=== PATIENT | female | born 1970 | race Two or more races ===

== ENCOUNTER 2024-10-24 21:36 | Emergency (ER) | payer MEDICAID, OTHER ==
[~2024-10-24] VITALS: Ht 152.4 cm; Wt 68.5 kg
--- NOTE | 2024-10-24 22:05 | ED.PDOC ---
HPI Comments 54-year-old female came to ER for chest pains. Patient has a history of dyslipidemia. States for the past week, episodes of aching, substernal chest pains, radiating to her upper back, and right and left shoulders. Complaining also of shortness a breath, epigastric abdominal pain, nausea, numbness of upper extremities, and episodes of dizziness. Patient was seen earlier at urgent care, and was advised to proceed with the nearest ER for further evaluation and management. REVIEW OF SYSTEMS: General: No fever, no chills, or fatigue HEENT: No sore throat, no earache, no congestion, no neck pain. Cardiac: (+) chest pain. No palpitations. Lungs: (+) shortness of breath, no cough. GI: No nausea, no vomiting, no diarrhea, no constipation, (+) abdominal pain : No dysuria, frequency, or urgency. No hematuria. Musculoskeletal: No joint pain , no joint swelling, no extremity edema. Skin: No rash, no itching. Neuro: No headache, no dizziness, no weakness, (+) numbness of upper extremities EXAM: General: Awake, alert and oriented. No acute distress. Skin: Skin in warm, dry and intact. Appropriate color for ethnicity. HEENT: The head is normocephalic and atraumatic. Conjunctivae are clear without exudates or hemorrhage. Sclera is non-icteric. EOM are intact. No signs of nystagmus. Eyelids are normal in appearance without swelling or lesions. Oral mucosa is pink and moist Neck: The neck is supple with normal range of motion. No JVD. Cardiac: Heart rate and rhythm are normal. No murmurs, gallops, or rubs are auscultated. Respiratory: No signs of respiratory distress. Lung sounds are clear in all lobes bilaterally without rales, rhonchi, or wheezes. Abdominal: Abdomen is soft, non-tender without distention. Bowel sounds are present and normoactive in all four quadrants. Extremities: Upper and lower extremities are atraumatic in appearance without deformity or edema. Neurological: The patient is awake, alert and oriented to person, place, and time with normal speech. Speech is clear. There is no facial asymmetry. Psychiatric: Appropriate mood and affect. 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 Was a procedure done?: No CP Differential Dx Differential Diagnosis: Angina, Anxiety / Panic Attack Differential Diagnosis: Angina, Chest Wall Pain, Costochondritis, Esophageal reflux/spasm, Gastritis, Myocardial Infarction, Other Comment Intracranial mass, spinal stenosis, other X-Ray, Labs, Meds, VS Vital Signs Date Time Temp Pulse Resp B/P (MAP) Pulse Ox O2 Delivery O2 Flow Rate FiO2 10/25/24 05:55 97.9 63 18 132/84 (100) 94 97.9 10/25/24 04:18 98 Room Air* 0 21 10/25/24 02:09 98.0 54 14 129/82 (98) 96 98.0 10/24/24 23:52 98.2 68 14 138/77 (97) 94 98.2 10/24/24 22:54 64 10/24/24 22:05 77 10/24/24 21:40 98.6 69 20 150/80 96 98.6 Lab Test 10/24/24 23:00 10/24/24 22:00 10/24/24 21:56 Range/Units Troponin I High Sensitivity < 3 L < 3 L </=34 ng/L Urine Color Light-yellow Yellow Urine Clarity Clear Clear Urine pH 5.5 5.0-9.0 Urine Specific [place] 1.019 1.001-1.035 Urine Protein Negative Negative Urine Ketones Negative Negative Urine Blood 1+ H Negative /uL Urine Nitrite Negative Negative Urine Bilirubin Negative Negative Urine Urobilinogen Normal Negative mg/dL Urine Leukocyte Esterase Negative Negative /uL Urine RBC 3 0 - 4 /hpf Urine Microscopic WBC 1 0-5 /HPF Urine Squamous Epithelial Cells Few <5 /hpf Urine Bacteria None seen None Seen /hpf Urine Mucus Few None Seen Urine Glucose Normal Normal mg/dL White Blood Count 7.3 4.4-10.8 10^3/uL Red Blood Count 4.52 4.0-5.20 10^6/uL Hemoglobin 14.3 12.2-16.2 g/dL Hematocrit 41.1 36.0-46.0 % Mean Corpuscular Volume 90.9 80.0-100.0 fL Mean Corpuscular Hemoglobin 31.5 28.0-32.0 pg Mean Corpuscular Hemoglobin Concent 34.6 32.0-36.0 g/dL Red Cell Distribution Width 13.0 11.8-14.3 % Platelet Count 233 140-450 10^3/uL Mean Platelet Volume 9.1 6.9-10.8 fL Neutrophils (%) (Auto) 57.8 37.0-80.0 % Lymphocytes (%) (Auto) 35.4 10.0-50.0 % Monocytes (%) (Auto) 5.7 0.0-12.0 % Eosinophils (%) (Auto) 0.6 0.0-7.0 % Basophils (%) (Auto) 0.5 0.0-2.0 % Neutrophils # (Auto) 4.2 1.6-8.6 10 ^3/uL Lymphocytes # (Auto) 2.6 0.4-5.4 10 ^3/uL Monocytes # (Auto) 0.4 0-1.3 10 ^3/uL Eosinophils # (Auto) 0 0-0.8 10 ^3/uL Basophils # (Auto) 0 0-0.2 10 ^3/uL Nucleated Red Blood Cells 0.1 % D-Dimer, Quantitative 0.67 H 0.0-0.49 mg/L FEU Sodium Level 143 136-145 mmol/L Potassium Level 4.1 3.5-5.1 mmol/L Chloride Level 104 98-107 mmol/L Carbon Dioxide Level 27 20-31 mmol/L Anion Gap 12 5-15 Blood Urea Nitrogen 11 9-23 mg/dL Creatinine 0.96 0.550-1.02 mg/dL Glomerular Filtration Rate Calc 69 >90 mL/min BUN/Creatinine Ratio 11.5 10.0-20.0 Serum Glucose 152 H 74-106 mg/dL Calcium Level 9.9 8.7-10.4 mg/dL Magnesium Level 2.2 1.6-2.6 mg/dL Total Bilirubin 0.8 0.2-1.0 mg/dL Aspartate Amino Transferase (AST) 21 13-40 U/L Alanine Aminotransferase (ALT) 28 7-40 U/L Alkaline Phosphatase 90 46-116 U/L Total Protein 7.9 5.7-8.2 g/dL Albumin 4.8 3.2-4.8 g/dL CHEST RADIOGRAPH Indication: Chest pain Technique: Single frontal view of the chest was obtained Comparison: None FINDINGS: Lines and Tubes: None Lungs: No focal consolidation. Pleura: No effusion. No pneumothorax. Cardiomediastinal contours: Unremarkable Bones: No acute osseous abnormality. IMPRESSION: 1. No acute cardiopulmonary disease. Time of 1ST Reevaluation: 22:00 Reevaluation 1ST: Unchanged Patient Education/Counseling: Need For Follow Up Family Education/Counseling: No Family Present SEPSIS Sepsis Screen Date sepsis recognized/suspect: Oct 24, 2024 Time Sepsis recognized/suspect: 2139 Recent Procedure: No On Antibiotic Therapy: No Respiratory Rate >20: No Heart Rate >90: Yes Temp<36 C (96.8 F) or >38.3 C: No SBP <90 or MAP <65 mmHG: No New Acute Mental Status Change: No Is the patient on CPAP, BIPAP,: No Physician Orders Electrocardigram (10/25/24 00:53) Chest Xray 1 View (10/24/24 21:53) Head Without Contrast (10/24/24 22:59) Cervical Without Contrast (10/24/24 22:59) Ct Angio Chest Contrast (10/25/24 00:27) Vital Signs Date Time Temp Pulse Resp B/P (MAP) Pulse Ox O2 Delivery O2 Flow Rate FiO2 10/25/24 05:55 97.9 63 18 132/84 (100) 94 97.9 10/25/24 04:18 98 Room Air* 0 21 10/25/24 02:09 98.0 54 14 129/82 (98) 96 98.0 10/24/24 23:52 98.2 68 14 138/77 (97) 94 98.2 10/24/24 22:54 64 10/24/24 22:05 77 10/24/24 21:40 98.6 69 20 150/80 96 98.6 Laboratory Tests Test 10/24/24 21:56 White Blood Count 7.3 10^3/uL (4.4-10.8) Departure 1 Departure Time of Disposition: 00:26 Impression: Primary Impression: Chest pain Additional Impression: Headache Disposition: HOME / SELF CARE / HOMELESS Condition: Good Additional Instructions: INSTRUCCIONES DE LEO DE Urgencias Instrucciones: Anastacia atentamente todas las instrucciones proporcionadas en pantera paquete. Aunque le hayan dado el leo del Departamento de Emergencias, esto no significa que tenga un "certificado de buena ayaz". Hoy no se turcios realizado ningn diagnstico definitivo para nima sntomas. Es posible que ests en proceso de desarrollar silver enfermedad grave. Es por eso que debe regresar al servicio de urgencias sin falta si presenta algn sntoma nuevo o que empeora (especialmente si nima sntomas incluyen dolor en el pecho, dificultad para respirar, dolor abdominal, fiebre, dolor de virgilio, confusin, dificultad para victor m o caminar). Tambin es muy importante que consulte a un mdico de atencin primaria dentro de los prximos 3 a 5 varner para realizar un seguimiento. Si no puede conseguir silver costa, regrese al servicio de urgencias para silver nueva evaluacin. Dolor en el pecho: Instrucciones de cuidado Tabla de contenido Descripcin general Foreign Student Adviser puedes cuidarte en casa? Cundo debes pedir ayuda? Crditos Descripcin general Hay muchas cosas que pueden causar dolor en el pecho. Algunas no son graves y mejoran por s solas en unos varner. Sin embargo, algunos tipos de dolor en el pecho requieren ms pruebas y tratamiento. Es posible que briceno mdico le haya recomendado silver visita de seguimiento en los prximos varner. Si no mejora, es posible que necesite ms pruebas o tratamiento. Aunque briceno mdico le haya dado de leo, debe estar atento a cualquier problema. El mdico le realiz silver revisin exhaustiva, january a veces pueden surgir problemas ms adelante. Si presenta sntomas nuevos o si estos no mejoran, busque atencin mdica de inmediato. Si tiene un dolor o presin en el pecho peor o diferente que dura ms de 5 minutos o si se desmay (perdi el conocimiento), llame al 911 o busque otra ayuda de emergencia de inmediato. Silver visita mdica es solo un paso en briceno tratamiento. Incluso si se siente mejor, debe seguir las recomendaciones de briceno mdico, awa asistir a todas las citas de seguimiento sugeridas y kristen los medicamentos exactamente awa se le indique. [place] le ayudar a recuperarse y a prevenir problemas futuros. Foreign Student Adviser puedes cuidarte en casa? Descansa hasta que te sientas mejor. [place] briceno medicamento exactamente awa se lo recetaron. Llame a briceno mdico si vida que tiene algn problema con brcieno medicamento. No conduzca despus de kristen un analgsico recetado. Cundo debes pedir ayuda? Llame al 911 si: Te desmayaste (perdiste el conocimiento). Tienes dificultad grave para respirar. Tiene sntomas de un ataque cardaco. Estos pueden incluir: Dolor o presin en el pecho, o silver sensacin extraa en el pecho. Transpiracin. Dificultad para respirar. Nuseas o vmitos. Dolor, presin o silver sensacin extraa en la espalda, el na, la mandbula o la parte superior del abdomen o en delmi o ambos hombros o brazos. Mareo o debilidad repentina. Un ritmo cardaco rpido o irregular. Despus de llamar al 911 , el operador podra indicarle que mastique silver aspirina para adultos o de 2 a 4 aspirinas de dosis baja. Espere la ambulancia. No intente conducir. Llame a briceno mdico ahora o busque atencin mdica inmediata si: Tienes alguna dificultad para respirar. Tiene un dolor en el pecho nuevo o diferente. Se siente mareado o aturdido o awa si se pudiera desmayar. Preste atencin de cerca a los cambios en briceno ayaz y asegrese de comunicarse con briceno mdico si no mejora awa se esperaba. Crditos para el dolor de pecho: Instrucciones de cuidado Actualizado al: 2023 Autor: Personal de [place] Junta de revisin clnica Toda la educacin de [place] es revisada por un equipo que incluye mdicos, enfermeras, profesionales avanzados, dietistas registrados y otros profesionales de la ayaz. Comments 54-year-old female with chest pain. EKG negative for signs of ischemia. High sensitivity troponin negative. CXR shows no acute process. D-dimer elevated however CT angiogram negative for pulmonary embolism. Presentation not suggestive of acute coronary syndrome, pulmonary embolism or aortic dissection. Patient improved at time of discharge. Patient has not been hypoxic, tachycardic, in respiratory distress or dyspneic during the ED observation. Patient able to ambulate without difficulty. Patient felt stable for discharge to follow up with PCP promptly. Patient advised to return to the ED with any new, worsening or concerning symptoms or inability to follow up with PCP. Critical Care Note Critical Care Time?: No Stability Stability form required: No Heart Score Heart Score: Heart Score Response (Comments) Value History Moderate Suspicious 1 EKG Repolarization Disturb 1 Age 45-64 1 Risk Factors 1 or 2 risk factors 1 Troponin Normal limit 0 Total 4 I personally scribed for JOLIE BARBOSA MD ([email or web address]) on 10/24/24 at 22:05. Electronically submitted by Aldo Clark ([facility]ITAL[facility]ersmore[facility]). I personally scribed for JOLIE BARBOSA MD ([email or web address]) on 10/24/24 at 22:50. Electronically submitted by Aldo Clark ([facility] [employer]). JOLIE BARBOSA MD Oct 24, 2024 22:05
[2024-10-24 22:19] LABS: Hematocrit 41.1 % (36.0-46.0); Hemoglobin 14.3 g/dL (12.2-16.2); Mean Corpuscular Hemoglobin 31.5 pg (28.0-32.0); Mean Corpuscular Volume 90.9 fL (80.0-100.0); Nucleated Red Blood Cells % 0.1 %
--- NOTE | 2024-10-24 22:31 | DVH ---
CHEST RADIOGRAPH Indication: Chest pain Technique: Single frontal view of the chest was obtained Comparison: None FINDINGS: Lines and Tubes: None Lungs: No focal consolidation. Pleura: No effusion. No pneumothorax. Cardiomediastinal contours: Unremarkable Bones: No acute osseous abnormality. IMPRESSION: 1. No acute cardiopulmonary disease.
[2024-10-24 22:37] LABS: Alanine Aminotransferase 28 U/L (7-40); Albumin 4.8 g/dL (3.2-4.8); Alkaline Phosphatase 90 U/L (46-116); Anion Gap 12 (5-15); BUN/Creatinine Ratio 11.5 (10.0-20.0); Blood Urea Nitrogen 11 mg/dL (9-23); Calcium 9.9 mg/dL (8.7-10.4); Carbon Dioxide 27 mmol/L (20-31); Chloride 104 mmol/L (98-107); Magnesium 2.2 mg/dL (1.6-2.6); Potassium 4.1 mmol/L (3.5-5.1); Sodium 143 mmol/L (136-145); Total Protein 7.9 g/dL (5.7-8.2)
[2024-10-24 22:38] LABS: Bilirubin, Total 0.8 mg/dL (0.2-1.0); Glucose 152 mg/dL (74-106)
[2024-10-24 22:40] LABS: Urine Protein, UAD Negative (Negative)
--- NOTE | 2024-10-24 23:00 | ECG ---
[facility] Test Date: 2024-10-24 Test Time: 21:46:56 Pat Name: LEVI RIVERA Department: ED Room: Gender: F Bending Machine Operator: AUGUSTO : 1970 Requested By: JOLIE BARBOSA Order Number: [id number] Reading MD: Sheng Reyes Measurements Intervals [place] Rate: 77 P: 52 SD: 153 QRS: 45 QRSD: 98 T: 28 QT: 382 QTc: 433 Interpretive Statements Pediatric ECG interpretation Slow sinus arrhythmia Prolonged SD interval Left atrial enlargement Nonspecific intraventricular conduction delay Low voltage, precordial leads Baseline wander in lead(s) II Electronically Signed On 10-27-2024 18:49:23 PDT by Sheng Reyes Please click the below link to view image of tracing.
--- NOTE | 2024-10-24 23:01 | ECG ---
[facility] Test Date: 2024-10-24 Test Time: 22:54:59 Pat Name: LEVI RIVERA Department: ED Room: Gender: F Programming Manager: DUY : 1970 Requested By: JOLIE BARBOSA Order Number: [id number] Reading MD: Sheng Reyes Measurements Intervals [place] Rate: 64 P: 56 ND: 160 QRS: 53 QRSD: 91 T: 48 QT: 398 QTc: 411 Interpretive Statements Sinus rhythm Low voltage, precordial leads Electronically Signed On 10-27-2024 18:49:27 PDT by Sheng Reyes Please click the below link to view image of tracing.
--- NOTE | 2024-10-24 23:42 | DVH ---
EXAM: CT HEAD WITHOUT CONTRAST INDICATION: r/o mass/bleed. new onset head ache TECHNIQUE: CT of the head without intravenous contrast. Radiation Dose : 1. Head: CT Dose: CTDI volume is 56.45 mGy. Dose-length product is 999.51 mGy*cm The dose indicators for CT are the volume Computed Tomography (CT) Dose Index (CTDIvol) and the Dose Length Product (DLP), and are measured in units of mGy and mGy-cm, respectively. These indicators are not patient dose, but values generated from the CT scanner acquisition factors. The report includes radiation exposure data for exposures received during this examination. COMPARISON: None FINDINGS: There is no evidence of acute intracranial hemorrhage, extra-axial collection, mass effect, midline s hift, herniation or hydrocephalus. 5 mm intraparenchymal calcification within the superior right frontal lobe. The ventricles, sulci and cisterns are age appropriate. The ruano-white differentiation is intact. Patchy periventricular and subcortical white matter hypoattenuation is nonspecific but may be related to small vessel ischemic disease. The visualized paranasal sinuses and mastoid air cells are clear. The surrounding soft tissues and osseous structures are unremarkable. IMPRESSION: 1. No acute intracranial abnormality. 2. Superior right frontal lobe parenchymal calcification. Radiation optimization: All CT scans at this facility use at least one of these dose optimization josé hniques: automated exposure control mA and/or kV adjustment per patient size (includes targeted exam s where dose is matched to clinical indication) or iterative reconstruction.
--- NOTE | 2024-10-25 00:11 | DVH ---
EXAM: CT CERVICAL WITHOUT CONTRAST HISTORY: b/l le and ue tingling. r/o spinal compression COMPARISON: None CTDIvol 22.17 mGy, DLP 577.2 mGy*cm. TECHNIQUE: Multiple axial CT images of the spine were obtained using bone algorithm. Axial and coron al reformatting was done. Bone and soft tissue windows were reviewed. FINDINGS: Mild reversal of normal cervical lordosis. No CT evidence of definite acute fracture, spinal dislocat ion, or significant appearing acute subluxation is seen. The visualized paraspinal soft tissues are g rossly unremarkable. Aekf-ve-[id number] multilevel disc height loss with adjacent endplate sclerosis and anterior osteophyto sis. [id number] multilevel bilateral facet hypertrophy. IMPRESSION: 1. No definite CT evidence of acute fracture or dislocation of the bony cervical spine. 2. Degenerative change of the cervical spine.
[2024-10-25] MEDS: IOHEXOL 300 MG/ML 100ML BOTTLE IJ ONE (04:12)
[2024-10-25 04:18] VITALS: O2SAT 98
--- NOTE | 2024-10-25 04:20 | DVH ---
CTA Chest with intravenous contrast INDICATION: Shortness of breath, chest pain, elevated D-dimer COMPARISON: None TECHNIQUE: Multidetector spiral CTA of the chest was performed of the chest with intravenous contrast . PULMONARY ANGIOGRAPHY PROTOCOL was utilized using a bolus-tracking technique centered on the main p ulmonary artery. Axial, coronal and sagittal multiplanar and MIP reformats were performed. Radiation Dose : 1. Chest: CTDI volume is 17.76 mGy. Dose-length product is 371.5 mGy*cm The dose indicators for CT are the volume Computed Tomography (CT) Dose Index (CTDIvol) and the Dose Length Product (DLP), and are measured in units of mGy and mGy-cm, respectively. These indicators are not patient dose, but values generated from the CT scanner acquisition factors. The report includes radiation exposure data for exposures received during this examination. Findings: Pulmonary artery: No pulmonary embolism. Lower neck: Normal thyroid. Lungs: No focal consolidation, pleural effusion or pneumothorax. Left basilar atelectasis. Heart/Vascular Structures: Normal heart size. No pericardial effusion. Lymph Nodes: No adenopathy Musculoskeletal: No acute osseous abnormality. Soft tissues: Normal. Upper abdomen: Limited portions of the upper abdomen are unremarkable. IMPRESSION: 1. No pulmonary embolism. 2. No acute thoracic finding.
[2024-10-25 05:55] VITALS: BP 132/84; PULSE 63; RESP 18; TEMP 97.9; O2SAT 94
== END 2024-10-25 06:39 | disposition home or self-care (01) ==
LOC: ER 21:36
DX: R07.89 Other chest pain (principal); R51.9 Headache, unspecified; E78.5 Hyperlipidemia, unspecified; Z79.899 Other long term (current) drug therapy
CPT/HCPCS: 36415; 70450; 71045; 71275; 72125; 80053; 81001; 83735; 84484; 85025; 85379; 93005; 99285; Q9967